=== PATIENT | female | born 1950 | race Caucasian/White ===

== ENCOUNTER 2021-06-15 19:03 | Emergency (ER) | payer MEDICARE, BC ==
[~2021-06-15] VITALS: Ht 154.9 cm; Wt 56.2 kg
--- NOTE | 2021-06-15 19:29 | NUR ---
AFTER BEING TRIAGED PATIENT WAS SENT BACK TO WAITING ROOM DUE TO NO BEDS IN THE ER AVAILABLE.
--- NOTE | 2021-06-15 21:46 | NUR ---
ROOM AVAILABLE AT THIS TIME. PATIENT PLACED IN ROOM 1B.
--- NOTE | 2021-06-15 21:54 | NUR ---
DR. CULP AT BEDSIDE, MSE IN PROGRESS.
[2021-06-15] MEDS: TDAP DIPH,PERTUSS,TET VAC/PF 0.5 ML DISP.SYRIN IM ONE (22:05)
--- NOTE | 2021-06-15 22:09 | NUR ---
Patient discharged to home in stable condition. Written and verbal after care instructions given. Patient verbalizes understanding of instructions. Stressed follow up or return to ER for worsening s/s. Steady gait.
[2021-06-15] MEDS ORDERED: TDAP DIPH,PERTUSS,TET VAC/PF 0.5 ML DISP.SYRIN IM ONE (22:10)
[2021-06-15 22:45] VITALS: BP 142/88
== END 2021-06-15 22:10 | disposition home or self-care (01) ==
LOC: ER 19:03
DX: S01.312A Laceration without foreign body of left ear, initial encounter (principal); V48.4XXA Person boarding or alighting a car injured in noncollision transport accident, initial encounter; Y92.89 Other specified places as the place of occurrence of the external cause; E78.5 Hyperlipidemia, unspecified
CPT/HCPCS: 90715; A4663